=== PATIENT | female | born 1995 | race Caucasian/White ===

== ENCOUNTER 2018-05-01 17:20 | Emergency (ER) | payer MEDICAID, OTHER ==
[~2018-05-01] VITALS: Ht 165.1 cm; Wt 82.7 kg
[~2018-05-01 17:20] MED LIST: BCP; PANT20TA3 PO; VENL75CA PO
[2018-05-01] MEDS ORDERED: IBUP-1484 PO (17:54)
[2018-05-01] MEDS ORDERED: AMPH25CA4 PO (17:54)
[2018-05-01 18:02] LABS: BASOPHILS # (AUTO) 0.02 x10^3/uL (0-0.1); BASOPHILS % (AUTO) 0 % (0-1); EOSINOPHILS # (AUTO) 0.33 x10^3/uL (0-0.4); EOSINOPHILS % (AUTO) 3 % (1-7); LYMPHOCYTES # (AUTO) 2.19 x10^3/uL (1-3.4); LYMPHOCYTES % (AUTO) 17 % (22-44); MD NO; MEAN CORPUSCULAR HEMOGLOBIN 31.7 pg (27.0-34.8); MEAN CORPUSCULAR HGB CONC 34.1 g/dL (32.4-35.8); MEAN PLATELET VOLUME 8.3 fL (7.4-10.4); MONOCYTES % (AUTO) 4 % (2-9); NEUTROPHILS # (AUTO) 9.68 x10^3/uL (1.8-6.8); NEUTROPHILS % (AUTO) 76 % (42-75); PLATELET COUNT 366 x10^3/uL (130-400); RED BLOOD COUNT 4.24 x10^6/uL (3.82-5.3); RED CELL DISTRIBUTION WIDTH 11.7 % (9.6-15.2)
[2018-05-01 18:09] LABS: ALBUMIN 3.4 g/dL (3.4-5.0); ANION GAP 7 mmol/L (5-15); CALCIUM 8.6 mg/dL (8.5-10.1); CHLORIDE 107 mmol/L (98-107); CREATININE 0.87 mg/dL (0.55-1.02)
[2018-05-01 18:21] LABS: MICROSCOPIC NOT IND
[2018-05-01 18:26] LABS: CULTURE INDICATED? NO
[2018-05-01] MEDS ORDERED: CEFTRIAXONE 1,000 MG IM ONE (19:30)
[2018-05-01] MEDS ORDERED: CEFTRIAXONE 1,000 MG ONE (19:40)
[2018-05-01 20:05] VITALS: BP 137/72
== END 2018-05-01 20:10 | disposition home or self-care (01) ==
LOC: ED 20:00
DX: J06.9 Acute upper respiratory infection, unspecified (principal)
CPT/HCPCS: 36415; 71046; 80048; 81003; 82040; 83605; 84703; 85025; 96372; 99285; J0696